=== PATIENT | female | born 1990 | race Caucasian/White ===

== ENCOUNTER → 2021-10-05 17:01 | Outpatient (CLI) | payer OTHER, SELFPAY ==
[2021-10-05 20:26] LABS: Urine N gonorrhoeae NOT DETECTED
[2021-10-05 20:32] LABS: Urine Chlamydia NOT DETECTED
== END ==
PROVIDERS: PCP Physician Assistant; Visit Provider Obstetrics & Gynecology
DX: Z34.81 Encounter for supervision of other normal pregnancy, first trimester (principal); Z3A.10 10 weeks gestation of pregnancy
CPT/HCPCS: 87491; 87591

== ENCOUNTER → 2021-10-05 17:42 | Outpatient (CLI) | payer OTHER, SELFPAY ==
[2021-10-05 18:04] LABS: Add Manual Diff / Slide Review NO; Basophils Absolute Auto 100 /uL (0-100); Basophils Percent Auto 0.6 % (0-2); Eosinophils Absolute Auto 100 /uL (0-450); Eosinophils Percent Auto 0.6 % (2-4); Hematocrit 39.6 % (36-46); Hemoglobin 13.9 g/dL (12.0-16.0); Lymphocytes Absolute Auto 1700 /uL (1100-4500); Lymphocytes Percent Auto 14.7 % (25-40); Mean Corpuscular HGB Conc 35.1 % (30-36); Mean Corpuscular Hemoglobin 29.3 PG (26-34); Mean Corpuscular Volume 83.6 fL (80-100); Monocytes Absolute Auto 500 /uL (0-900); Monocytes Percent Auto 4.4 % (3-14); Neutrophils Absolute Auto 9300 /uL (1500-7000); Neutrophils Percent Auto 79.7 % (50-75); Platelet Count 304 X10^3/uL (150-400); Red Blood Cell Count 4.73 X10^6/uL (4.0-5.2); Red Cell Distribution Width 12.5 % (11.6-14.8); White Blood Cell Count 11.7 X10^3/uL (4.5-11.0)
[2021-10-05 18:20] LABS: Alanine Aminotransferase 16 IU/L (<35); Aspartate Aminotransferase 22 IU/L (14-36); BUN Creatinine Ratio 20.4 (6-22); Blood Urea Nitrogen 11 mg/dL (7-17); Estimated Glomerular Filt Rate > 60 mL/min (>60); Uric Acid 3.3 mg/dL (2.5-6.2)
== END ==
PROVIDERS: PCP Physician Assistant; Referring Provider Obstetrics & Gynecology; Visit Provider Obstetrics & Gynecology
DX: Z34.81 Encounter for supervision of other normal pregnancy, first trimester (principal); Z36.0 Encounter for antenatal screening for chromosomal anomalies; Z3A.10 10 weeks gestation of pregnancy
CPT/HCPCS: 36415; 82565; 84450; 84460; 84520; 84550; 85025; 87491; 87591

== ENCOUNTER → 2021-11-17 17:32 | Outpatient (CLI) | payer OTHER, SELFPAY ==
[2021-11-17 18:23] LABS: Add Manual Diff / Slide Review NO; Basophils Absolute Auto 0 /uL (0-100); Basophils Percent Auto 0.3 % (0-2); Eosinophils Absolute Auto 100 /uL (0-450); Eosinophils Percent Auto 0.6 % (2-4); Hemoglobin 12.9 g/dL (12.0-16.0); Lymphocytes Absolute Auto 2100 /uL (1100-4500); Lymphocytes Percent Auto 17.4 % (25-40); Mean Corpuscular HGB Conc 35.9 % (30-36); Mean Corpuscular Hemoglobin 29.8 PG (26-34); Monocytes Absolute Auto 500 /uL (0-900); Monocytes Percent Auto 4.2 % (3-14); Neutrophils Absolute Auto 9200 /uL (1500-7000); Neutrophils Percent Auto 77.5 % (50-75); Platelet Count 316 X10^3/uL (150-400); Red Blood Cell Count 4.34 X10^6/uL (4.0-5.2); Red Cell Distribution Width 12.7 % (11.6-14.8); White Blood Cell Count 11.9 X10^3/uL (4.5-11.0)
[2021-11-17 18:23] LABS: Appearance Urine UA CLEAR; Bilirubin Urine UA NEGATIVE (NEGATIVE); Color Urine UA YELLOW; Glucose Urine UA NEGATIVE (Negative); Ketones Urine UA NEGATIVE (NEGATIVE); Leukocyte Esterase Urine UA 2+ (NEGATIVE); Nitrite Urine UA NEGATIVE (Negative); Occult Blood Urine UA TRACE-LYSED (Negative); Protein Urine UA TRACE (Negative); Specific Gravity Urine UA 1.025 (1.000-1.035); Urobilinogen Urine UA 0.2 E.U./dL (0.2)
[2021-11-17 18:30] LABS: RBC Urine None Seen (0-5/HPF); WBC Urine 10-30/HPF (0-5/HPF)
[2021-11-17 18:31] LABS: Bacteria Urine Many (>30); Culture Indicated Urine Specimen Cultured; Squamous Epithelial Cell Urine 5-10 /HPF (0-5/HPF)
[2021-11-19 08:13] LABS: RPR Screen Non Reactive (Non Reactive)
[2021-11-19 12:48] LABS: Varicella IgG Antibody 1737 index (Immune >165)
[2021-11-21 11:27] LABS: HIV 1 & 2 Ab/Ag 4th Gen Combo NEGATIVE (NEGATIVE); Hep C Virus Ab w/Reflex Quant NEGATIVE s/c (NEGATIVE); Hepatitis B Surface Antigen NEGATIVE s/c (NEGATIVE); Rubella Antibody IgG 26.3 IU/mL (>15)
[2021-11-21 21:48] LABS: AFP Value 48.8 ng/mL (.); Gest Age on Col Date 17.6 weeks (.); Insulin Dep Diabetes No (.); OSBR Risk 1IN 6499 (.); Results Report (.); Test Results *Screen Negative* (.)
== END ==
PROVIDERS: PCP Physician Assistant; Referring Provider Obstetrics & Gynecology; Visit Provider Obstetrics & Gynecology
DX: Z34.82 Encounter for supervision of other normal pregnancy, second trimester (principal); Z3A.16 16 weeks gestation of pregnancy
CPT/HCPCS: 36415; 80055; 81003; 81015; 82105; 86787; 86803; 86850; 86900; 86901; 87086; 87389

== ENCOUNTER → 2021-12-14 12:08 | Outpatient (CLI) | payer OTHER, SELFPAY ==
--- NOTE | 2021-12-14 12:09 | DI.US.S_ITS ---
PROCEDURE: US OB >= 14 WEEKS FETUS INDICATIONS: anatomy scan OUTSIDE/PRIOR DATING DATA: Last menstrual period (LMP): 07/17/2021 LMP-based estimated date of delivery (KENIA): 04/23/2022. First dating scan (date and location): 10/05/2021. Estimated date of delivery (KENIA) from first dating scan: 04/29/2022. The calculations are made using the ultrasound KENIA of 04/29/2022. TECHNIQUE: Real-time scanning was performed of the fetus, with image documentation and biometric measurements. COMPARISON: None. FINDINGS: General: A single living intrauterine gestation is present. Presentation: Vertex. Placenta: Placental position is posterior , without previa. Amniotic fluid index: 12.8 cm, normal range is 5-24 cm. Single deepest vertical pocket is 3.8 cm. heart rate: 149 beats per minute. Maternal cervical canal: 4.7 cm long. Normal lower limit is 2.5 cm. biometrics: Biparietal diameter: 21 weeks 2 days Head circumference: 20 weeks 6 days Abdominal circumference: 20 weeks Femur length: 20 weeks Clinically estimated gestational age: 21 weeks 3 days Composite gestational age from present scan: 20 weeks 4 days Estimated weight and percentile: 341 g; 5th percentile Anatomic survey: Neuro: Ventricles are non-dilated at less than 10 mm. Cisterna magna is normal at 3-11 mm. Cerebellum is normal in size and morphology. Nuchal skin fold: Normal at less than 6 mm between 14-21 weeks gestational age. Face: Nose and lips, facial profile are normal. Spine: No evidence for spina bifida. Heart: Suboptimally visualized. Diaphragm: Diaphragm is intact. Stomach: Left-sided stomach is present. Kidneys: No hydronephrosis. Normal is less than 5 mm in 2nd trimester, less than 7 mm in 3rd trimester. Cord: 3-vessel cord has orthotopic insertion. Bladder: Normal in size. Extremities: All 4 extremities identified. IMPRESSION: 1. Single living IUP redemonstrated and interval growth is less than expected with estimated weight at the 5th percentile. Follow-up recommended. 2. heart not well seen; otherwise normal anatomic survey. We strive to produce accurate, complete, and clear reports of imaging services. To assist us in improving patient care, this report was composed using standard report templates and voice recognition software. Therefore, it may contain abnormal punctuation, insertions and/or omissions. Occasional wrong-word or sound-alike substitutions may occur. Though we review the report and make efforts to correct it, we do recommend that the report be read carefully in proper context to recognize any text inaccuracies. Dictated by: Sha TEJEDA Interpreted: Corbin Cook MD on 12/14/2021 at 14:12 Transcribed by: SANDER on 12/14/2021 at 14:14 Approved by: Corbin Cook M.D. on 12/14/2021 at 17:50
== END ==
PROVIDERS: PCP Physician Assistant; Referring Provider Obstetrics & Gynecology; Visit Provider Obstetrics & Gynecology
DX: Z34.82 Encounter for supervision of other normal pregnancy, second trimester (principal); Z3A.20 20 weeks gestation of pregnancy
CPT/HCPCS: 76811

== ENCOUNTER → 2022-01-26 11:11 | Outpatient (CLI) | payer OTHER, SELFPAY ==
[2022-01-26 16:40] LABS: GTT (PREG) 1 Hour PP 50gm Dose 133 mg/dL (76-139)
== END ==
PROVIDERS: PCP Physician Assistant; Referring Provider Obstetrics & Gynecology; Visit Provider Obstetrics & Gynecology
DX: Z34.82 Encounter for supervision of other normal pregnancy, second trimester (principal); Z3A.26 26 weeks gestation of pregnancy
CPT/HCPCS: 36415; 82950; 85014; 85018

== ENCOUNTER 2022-02-27 07:55 | Outpatient (CLI) | payer OTHER, SELFPAY ==
[2022-02-27 08:41] LABS: Appearance Urine UA CLEAR; Bilirubin Urine UA NEGATIVE (NEGATIVE); Color Urine UA YELLOW; Glucose Urine UA NEGATIVE (Negative); Ketones Urine UA NEGATIVE (NEGATIVE); Leukocyte Esterase Urine UA 1+ (NEGATIVE); Nitrite Urine UA NEGATIVE (Negative); Occult Blood Urine UA 2+ (Negative); Protein Urine UA NEGATIVE (Negative); Specific Gravity Urine UA <=1.005 (1.000-1.035); Urobilinogen Urine UA 0.2 E.U./dL (0.2)
[2022-02-27 08:51] LABS: pH Urine UA 5.5 (4.5-8.0)
[2022-02-27 09:00] LABS: Bacteria Urine Few (2-10); Culture Indicated Urine Specimen Cultured; RBC Urine 0-1/HPF (0-5/HPF); Squamous Epithelial Cell Urine 0-1 /HPF (0-5/HPF); WBC Urine 0-1/HPF (0-5/HPF)
[2022-02-27] MEDS: NIFEdipine 10 MG CAPSULE PO ×4 (09:22→10:45)
== END 2022-02-27 11:25 | disposition home or self-care (01) ==
LOC: LABOR 08:09 → OB 03-01 17:06
PROVIDERS: Obstetrics & Gynecology; PCP Physician Assistant; Referring Provider Obstetrics & Gynecology; Visit Provider Obstetrics & Gynecology
DX: O60.03 Preterm labor without delivery, third trimester (principal); Z3A.30 30 weeks gestation of pregnancy
CPT/HCPCS: 59025; 59050; 81001; 87086; G0378; G0379

== ENCOUNTER 2022-04-06 07:06 | Observation (INO) | payer OTHER, SELFPAY ==
[2022-04-06] MEDS: TERBUTALINE 1 MG/ML VIAL 0.25 MG SUBCUT (07:30)
== END 2022-04-06 09:35 | disposition home or self-care (01) ==
PROVIDERS: Admitting Provider Obstetrics & Gynecology; PCP Physician Assistant; Referring Provider Obstetrics & Gynecology; Visit Provider Obstetrics & Gynecology
DX: O60.03 Preterm labor without delivery, third trimester (principal); Z3A.36 36 weeks gestation of pregnancy
CPT/HCPCS: 59025; 59050; G0378; G0379

== ENCOUNTER 2022-04-12 10:53 | Inpatient (IN) | payer OTHER, SELFPAY ==
--- NOTE | 2022-04-12 11:39 | P.HPOB_ITS ---
OB HPI Date/Time Date of admission: 04/12/22 Date Patient Seen: 04/12/22 Time Patient Seen: 11:39 History of Present Condition Chief complaint: Contractions, Breech presentation : 2 Para: 1 Estimated Date of Delivery: 05/03/22 Estimated Gestational Age (weeks): 37+0 Narrative: Josey De Leon is a 32 year old , KENIA 05/03/2022 who presents with regular uterine contractions today at 37+ 0 weeks gestational age. Patient had been noted to be breech and unsuccessful ECV was attempted 04/06/2022. Contractions began earlier today and have progressed to the point where they are every 2 minutes and of moderate intensity. External heart rate monitoring shows a reactive tracing with baseline heart rate of 150 beats per minute and deceleration down to 120 beats per minute was noted after cervical check but baseline heart rate is returned to pre deceleration levels. course is largely been uneventful with the appropriate milestones and normal 1/2 trimester ultrasounds. Patient is known to have either an arcuate or bicornuate uterus. Patient had a severe reaction to prior opioid administration and declines any opioid administration because of that event. Indications Operative indications ( section): malpresentation History of Present care: good care Dating criteria: LMP confirmed by 1st trimester US Ultrasounds: normal 1st trimester US and normal mid trimester US Obstetrical complications: none Medical complications: none Preadmission Labs Blood type: O (+) positive -: Antibody screen: negative, GBS status: unknown, HBsAG: negative, HIV: negative and RPR/VDLR: negative -: Chlamydia screen: not detected and Gonorrhea screen: not detected -: Rubella: immune and Varicella: immune HCT: 37.0 HCAB: negative PAP: Normal Quad screen: Normal 1 hr GTT: 133 Prior (ies) History: x 1 Evaluation Evaluation Baseline heart rate: 155 Variability: Moderate (11-25) monitor accelerations: Present Monitor Decelerations: Episodic (Isolated variables following SVE) Contraction Frequency (minutes): 3 Uterine Contraction Intensity: Moderate Category of Tracing: Reactive Status: Category l Dilation (cm): 0 Effacement (%): 50 Dilation: Closed Effacement: 40-50% station: -3 [facility] Medical History (Updated 03/25/22 @ 18:50 by Breanna Gonzalez MD) Bicornate uterus Chicken pox (~1992) Eczema (~2009) Encounter for supervision of other normal , first trimester Fibroids (~2019) High risk due to history of previous obstetrical problem Irregular menstrual cycle Migraines (~2009) PCOS (polycystic ovarian syndrome) (~2019) depression delivery UTI (urinary tract infection) Surgical History (Updated 10/07/21 @ 12:07 by Breanna Gonzalez MD) Anesthesia History of cholecystectomy (~2019) History of cholecystectomy [place] teeth removed Family History (Updated 09/30/21 @ 19:05 by Mary Kate Naik) Mother Breast cancer Grandmother Breast cancer Grandfather History of heart disease Family/Other Treacher Machuca syndrome Social History marital status: number of children: 1 household members: spouse and children lives independently: Yes housing: house pets and animals: Yes (dog) 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) occupational status: employed current occupational exposures/hazards: No special ervin needs: No travel history: over 6 months ago seatbelt use: always water heater temp set < 120 deg: Yes working smoke detector in home: Yes fire extinguisher in home: Yes carbon monox detector in home: Yes firearms in home: No do you feel safe at home: Yes Smoking Status: Never smoker second hand exposure: No alcohol intake: never substance use type: does not use during the past year weight has: remained stable well-balanced diet: daily or most days daily servings fruits/ve-4 caffeine: No (aware of 200 mg limit) Type(s) of exercise: walking frequency: 5-6 times per week Meds Home Medications and Allergies Home Medications Medication Instructions Recorded Confirmed Type metformin 1,000 mg tablet 1,000 mg PO DAILY 09/29/21 03/23/22 History prenat.vits,leann,ibq-crur-buhfe 1 tab PO DAILY 09/29/21 03/23/22 History aspirin 81 mg tablet 81 mg PO DAILY 04/12/22 04/12/22 History Allergies Allergy/AdvReac Type Severity Reaction Status Date / Time shellfish derived Allergy Intermediate Rash Verified 03/23/22 09:40 Opioids - Morphine Analogues AdvReac Intermediate Hypotension Verified 03/23/22 09:40 Review of Systems Review of Systems Narrative: Problem-specific ROS positives included in HPI OB Exam HENMT Head: normal to inspection, normocephalic and atraumatic Eyes General: appearance normal, both eyes and all related structures Resp Effort & Inspection: normal respiratory effort and able to speak in complete sentences Auscultation: clear to auscultation bilaterally Cardio Rate: regular rate Rhythm: regular rhythm Heart Sounds: S1 normal, S2 normal and no murmurs Extremities Lower extremity: Yes normal to inspection GI Inspection: normal to inspection Palpation: Yes soft and Yes no hepatosplenomegaly Uterus Location (Fundal Height): 35 Presentation: ana maría breech Estimated Weight (lbs): 7 Objective Labs Result Diagrams: 04/12/22 11:50 Assessment and Plan Assessment and Plan Assessment and Plan narrative: ASSESSMENT 1. Intrauterine , 37+ 0 weeks gestational age, [place], prodromal labor 2. Breech presentation 3. Arcuate/bicornuate uterus 4. Opioid hypersensitivity PLAN 1. Admit delivery by section 2. Admission orders
[2022-04-12 11:43] VITALS: BP 130/85
--- NOTE | 2022-04-12 11:48 | PM.PREOP ---
Pre-operative Note COVID-19 COVID-19 status: Negative Result date/Date tested (Pos, Neg/Pending): 04/12/22 Criteria for continued procedure: Non-surgical alternatives not available or appropriate per current SOC Interval Note History & Physical reviewed/Exam performed by Physician: Yes Changes to H&P: No
[2022-04-12] MEDS: LACTATED RINGERS 1,000 ML 100 ML IV ×2 (11:51→13:25)
--- NOTE | 2022-04-12 11:57 | SUR.OPER ---
Supine on Padded OR bed, head on pillow, safety belt at thigh, arms secured on padded arm boards at <90 degrees abduction. Bump under right buttock. Legs uncrossed with pillow under knees, gel pad to heels, tape over blanket to lower legs.
[2022-04-12 12:01] LABS: COVID19 -Nasal RAPID Negative (Negative)
[2022-04-12] MEDS: CITRIC ACID/SODIUM CITRATE 15 ML SOLUTION 30 ML PO (12:10)
[2022-04-12 12:17] VITALS: BP 130/85
[2022-04-12 12:26] LABS: Add Manual Diff / Slide Review NO; Basophils Absolute Auto 0 /uL (0-100); Basophils Percent Auto 0.2 % (0-2); Eosinophils Absolute Auto 100 /uL (0-450); Eosinophils Percent Auto 0.5 % (2-4); Hematocrit 36.8 % (36-46); Hemoglobin 12.5 g/dL (12.0-16.0); Lymphocytes Absolute Auto 1700 /uL (1100-4500); Lymphocytes Percent Auto 13.2 % (25-40); Mean Corpuscular Hemoglobin 29.4 PG (26-34); Mean Corpuscular Volume 86.3 fL (80-100); Monocytes Absolute Auto 500 /uL (0-900); Monocytes Percent Auto 3.8 % (3-14); Neutrophils Absolute Auto 10500 /uL (1500-7000); Neutrophils Percent Auto 82.3 % (50-75); Platelet Count 294 X10^3/uL (150-400); Red Blood Cell Count 4.26 X10^6/uL (4.0-5.2); Red Cell Distribution Width 12.6 % (11.6-14.8); White Blood Cell Count 12.8 X10^3/uL (4.5-11.0)
[2022-04-12] MEDS: CEFAZOLIN 2 GM/100 ML PREMIX 100 ML IV (12:39)
[2022-04-12] MEDS: ACETAMINOPHEN IV 1,000 MG/100 ML VIAL 400 MG IV (12:52)
--- NOTE | 2022-04-12 12:59 | SUR.OPER ---
VIABLE MALE INFANT DELIVERED AT 1255. CORD BLOOD AND PLACENTA TO OB WITH RN.
[2022-04-12 13:54] VITALS: BP 129/81; PULSE 102; RESP 15; TEMP 36.1; O2SAT 100
[2022-04-12 13:57] VITALS: BP 136/74; PULSE 91; RESP 22; O2SAT 100
--- NOTE | 2022-04-12 13:59 | PM.OBCS.1 ---
Operative Date/Time/Diagnoses Date of procedure: 04/12/22 Time of procedure: 12:30 Pre-op diagnosis: Intrauterine gestation, rolon, 37+0 weeks EGA, labor Double footling breech Post-op diagnosis: same Procedure & Clinicians Procedure: Primary section, low transverse cervical Same procedure as scheduled: Yes Indications: Josey De Leon is a 32 year old , KENIA 05/03/2022 who presents with regular uterine contractions today at 37+ 0 weeks gestational age.? Patient had been noted to be breech and unsuccessful ECV was attempted 04/06/2022.? Contractions began earlier today and have progressed to the point where they are every 2 minutes and of moderate intensity.? External heart rate monitoring shows a reactive tracing with baseline heart rate of 150 beats per minute and deceleration down to 120 beats per minute was noted after cervical check but baseline heart rate is returned to pre deceleration levels.? After discussion of management alternatives, risks, benefits, and potential complications, the decision has been made to proceed with primary section for delivery of this double footling breech infant Surgeon: Grayson Reynoso Clothes Ironer: Emmy Gibson Reason for Clothes Ironer: Clothes Ironer required for the safe, effective, and timely completion of this surgery. Anesthesia Type: Spinal Operative Notes Findings: Viable male infant BW 2280 gms, Apgars 8/9, delivered from the double footling breech presentation. Normal gravid anatomy. Closure Type: primary Specimen(s): cord blood Intraoperative meds administered: Acetaminophen, Ketorolac and Pitocin Applied: Catheter Estimated Blood Loss (mL): 600 Blood products transfused: none Procedure in detail: With her informed written consent, the patient was taken to the operating room and placed in the supine position for a primary section procedure, for the indication above. The abdomen was prepped and draped in the usual manner for section and a pre-surgical timeout was taken per [facility] OR protocol. Once effective anesthesia was confirmed, a 15 cm transverse Pfannenstiel incision was made in the skin and taken down through the subcutaneous tissues to the deep fascia. The deep fascia was incised transversely, the rectus abdominal eyes bluntly and sharply, and the peritoneal cavity entered without difficulty. The lower uterine segment was visualized and the position/presentation palpated. A transverse incision at or above the vesicouterine reflection was made with Metzenbaum scissors and transverse hysterotomy performed near the midline. Amniotomy revealed clear fluid. The incision was extended bilaterally with digital traction and the infant was delivered without difficulty from the double footling breech presentation. The was not vigorous at the time of delivery and therefore cord clamping was not delayed and a segment of cord was obtained for cord blood gases. CAN x 2 noted and reduced following delivery of the . The placenta was delivered intact using gentle cord traction and fundal massage.The uterine cavity was then cleared of any clot/debris first with a sloppy wet lap tape followed by a dry lap tape. Ring forceps were then applied to the angles and the midline of the incised DAVEY. A primary closure of the uterus was then accomplished with #1 CCGS in a running interlocking stitch followed by a 2nd layer of #1 CCGS in a running interlocking imbricating stitch. One additional [id number] suture was required to achieve complete hemostasis. Once pelvic hemostasis was assured, the bladder flap and anterior peritoneum were closed with a running 2-0 Vicryl suture and the fascia closed with #1 Vicryl in a running stitch initiated at both angles and tying separately near the midline. The subcutaneous tissues were reapproximated with 2-0 plain catgut suture using inverted interrupted stitches. The skin edges were then brought together with 4-0 Monocryl in a subcuticular closure and the incision was reinforced with 1 Steri-Strips. An appropriate compression dressing was applied and the patient transferred to PACU for recovery and subsequent transfer to the Center for recuperation. Complications: none Baby 1: Gender: Male Presentation: breech Placental Delivery Description: Spontaneous and Expressed Cord Vessel Description: 3 Vessels and Nuchal Cord (x 2) score (1 min): 8 score (5 min): 9 weight: 5 lb 0.425 oz Post-operative Condition: stable Disposition: PACU Aftercare: routine postop
[2022-04-12 14:02] VITALS: BP 134/77; PULSE 102; RESP 24; O2SAT 100
[2022-04-12 14:08] VITALS: BP 128/74; PULSE 98; RESP 18; O2SAT 100
[2022-04-12] MEDS: OXYTOCIN PREMIX 30 UNIT/500 ML PLAST..BAG 200 UNIT IV (15:10)
[2022-04-12] MEDS: KETOROLAC 30 MG/ML VIAL IV (19:22)
[2022-04-12] MEDS: ACETAMINOPHEN 325 MG TABLET 650 MG PO (19:23)
[2022-04-12] MEDS: DOCUSATE 100 MG CAPSULE 200 MG PO (21:31)
[2022-04-13] MEDS: KETOROLAC 30 MG/ML VIAL IV ×2 (01:38→07:44)
[2022-04-13] MEDS: ACETAMINOPHEN 325 MG TABLET 650 MG PO ×3 (01:39→12:49)
[2022-04-13 05:57] LABS: Add Manual Diff / Slide Review NO; Basophils Absolute Auto 0 /uL (0-100); Basophils Percent Auto 0.3 % (0-2); Eosinophils Absolute Auto 0 /uL (0-450); Eosinophils Percent Auto 0.3 % (2-4); Hematocrit 29.3 % (36-46); Hemoglobin 10.2 g/dL (12.0-16.0); Lymphocytes Absolute Auto 1700 /uL (1100-4500); Lymphocytes Percent Auto 12.5 % (25-40); Mean Corpuscular HGB Conc 34.8 % (30-36); Mean Corpuscular Hemoglobin 29.8 PG (26-34); Mean Corpuscular Volume 85.4 fL (80-100); Monocytes Absolute Auto 600 /uL (0-900); Monocytes Percent Auto 4.6 % (3-14); Neutrophils Absolute Auto 10800 /uL (1500-7000); Neutrophils Percent Auto 82.3 % (50-75); Platelet Count 239 X10^3/uL (150-400); Red Blood Cell Count 3.43 X10^6/uL (4.0-5.2); Red Cell Distribution Width 12.6 % (11.6-14.8); White Blood Cell Count 13.2 X10^3/uL (4.5-11.0)
--- NOTE | 2022-04-13 07:29 | PM.OBPN.1 ---
Subjective - OB Subjective Patient comments: no complaints, pain well controlled and incisional pain baby status: other (Likely transfer due to BS regulation issues) [place] feeding status: pumping and storing Date Patient Seen: 04/13/22 Time Patient Seen: 07:30 Interval history: POD#1: Doing well with minimal lochia. + flatus. Tolerating PO well and ambulating to BR w/ mahan out. Exam Vital Signs (past 8 hours): Oxygen Delivery Method Room Air Const General: cooperative and comfortable Nutritional Appearance: average body habitus Orientation: alert and oriented x3 HENMT Head: normal to inspection, atraumatic and abrasion Ears: hearing grossly normal bilaterally Face and sinus: face symmetric Eyes General: appearance normal, both eyes and all related structures Conjunctivae: conjunctivae normal Sclera: sclerae normal EOM: EOM intact bilaterally Neck Neck: normal visual inspection Resp Effort & Inspection: normal respiratory effort and able to speak in complete sentences Auscultation: clear to auscultation bilaterally Cardio Rate: regular rate Rhythm: regular rhythm Heart Sounds: S1 normal, S2 normal and no murmurs GI Inspection: normal to inspection and incision (Surgical dressing clean and dry) Palpation: soft, no hepatosplenomegaly and tender (Mild, diffuse postsurgical tenderness) External Female Exam: other (No significant bleeding noted) Extrem General: no calf tenderness Psych Appearance: grossly normal Mental Status: mental status grossly normal Speech and Movement: speech and movement normal Mood: congruent mood Affect: normal affect Attitude: cooperative Thought Process: normal Thought Content: normal Judgment: judgment good Objective Labs Result Diagrams: 04/13/22 05:44 Labs: Laboratory Results - last 24 hr 04/12/22 04/12/22 04/12/22 11:30 11:50 11:50 WBC 12.8 H RBC 4.26 Hgb 12.5 Hct 36.8 MCV 86.3 MCH 29.4 MCHC 34.0 RDW 12.6 Plt Count 294 Neut % (Auto) 82.3 H Lymph % (Auto) 13.2 L [place] % (Auto) 3.8 Eos % (Auto) 0.5 L Baso % (Auto) 0.2 Neut # (Auto) 48436 H Lymph # (Auto) 1700 [place] # (Auto) 500 Eos # (Auto) 100 Baso # (Auto) 0 SARS-CoV-2 (PCR) Negative Blood Type O Positive Antibody Screen Negative 04/13/22 05:44 WBC 13.2 H RBC 3.43 L Hgb 10.2 L Hct 29.3 L MCV 85.4 MCH 29.8 MCHC 34.8 RDW 12.6 Plt Count 239 Neut % (Auto) 82.3 H Lymph % (Auto) 12.5 L [place] % (Auto) 4.6 Eos % (Auto) 0.3 L Baso % (Auto) 0.3 Neut # (Auto) 33121 H Lymph # (Auto) 1700 [place] # (Auto) 600 Eos # (Auto) 0 Baso # (Auto) 0 SARS-CoV-2 (PCR) Blood Type Antibody Screen Assessment & Plan Plan day: 1 plan OB: routine postop care Comments: Likely D/C later this AM due to pending transfer of her infant due to BS issues. Time Spent With Patient Time: Total time spent is greater than 50% in coordination of care (as documented) at patient's floor/unit and/or counseling patient: Time with patient: 15-24 minutes
[2022-04-13] MEDS: IRON SUCROSE 200 MG in SODIUM CHLORIDE 0.9% 100 ML 220 MG IV (07:51)
--- NOTE | 2022-04-13 09:45 | PM.OBDS.1 ---
Discharge Providers Provider Date of admission: 04/12/22 10:53 Discharge Date: 04/13/22 Primary care physician: Tone Alba PA-C Consults: 04/12/22 15:22 Consult to Slasher Tender Helper Routine Comment: Discharge provider: Grayson Reynoso MD Summary Hospital Course Date Patient Seen: 04/13/22 Time Patient Seen: 09:45 Diagnoses: Intrauterine gestation, rolon, breech presentation in labor, delivered by primary section Hospital Course: Josey presented on the morning of 04/12/2022 with painful regular uterine contractions after a failed attempt of external cephalic version last week. After counseling regarding all options, decision was made proceed to primary section which was performed on the morning of 04/12/2022. Details of the procedure well summarized on the dictated operative note of that date. Following delivery the patient done extremely well with prompt return of bowel and bladder function, she is ambulating independently, tolerating regular diet, and her pain is well controlled with oral pain medications. Unfortunately her infant is having difficulties with blood sugar regulation and is scheduled be transferred to [facility] for continued inpatient care in their [facility] and therefore patient requests early discharge. She will be discharged at this time in an afebrile normotensive condition to home after counseling regarding precautionary symptoms, limitations activity, medications, and plans for follow-up. Medications at discharge will include ibuprofen 600 mg p.o. q.6 hours as needed pain and Colace 200 mg p.o. b.i.d. as needed constipation. Follow-up will be with Dr. Kesha Mei one week for an incision check. Peripartum Data Infant Delivery Method: Section Laceration Description: None Episiotomy description: None complications: none 1: Gender: Male Disposition of : other (Transfer to [facility] for [facility] care) Discharge Diagnosis (1) delivery indicated due to breech presentation: Status: Acute Status at Discharge Cognitive/behavioral status at discharge: oriented Functional status at discharge: independent ambulation Overall status at discharge: patient is progressing back to baseline Time Spent with Patient Time attestation: Total time spent providing and/or coordinating discharge services: Time spent: Less than 30 minutes Objective Labs Result Diagrams: 04/13/22 05:44 Labs: Laboratory Results - last 24 hr 04/12/22 04/12/22 04/12/22 11:30 11:50 11:50 WBC 12.8 H RBC 4.26 Hgb 12.5 Hct 36.8 MCV 86.3 MCH 29.4 MCHC 34.0 RDW 12.6 Plt Count 294 Neut % (Auto) 82.3 H Lymph % (Auto) 13.2 L [place] % (Auto) 3.8 Eos % (Auto) 0.5 L Baso % (Auto) 0.2 Neut # (Auto) 70055 H Lymph # (Auto) 1700 [place] # (Auto) 500 Eos # (Auto) 100 Baso # (Auto) 0 SARS-CoV-2 (PCR) Negative Blood Type O Positive Antibody Screen Negative 04/13/22 05:44 WBC 13.2 H RBC 3.43 L Hgb 10.2 L Hct 29.3 L MCV 85.4 MCH 29.8 MCHC 34.8 RDW 12.6 Plt Count 239 Neut % (Auto) 82.3 H Lymph % (Auto) 12.5 L [place] % (Auto) 4.6 Eos % (Auto) 0.3 L Baso % (Auto) 0.3 Neut # (Auto) 31319 H Lymph # (Auto) 1700 [place] # (Auto) 600 Eos # (Auto) 0 Baso # (Auto) 0 SARS-CoV-2 (PCR) Blood Type Antibody Screen Exam Vital Signs (past 8 hours): Oxygen Delivery Method Room Air Const General: cooperative and comfortable Nutritional Appearance: average body habitus Orientation: alert and oriented x3 HENMT Head: normal to inspection, atraumatic and abrasion Ears: hearing grossly normal bilaterally Face and sinus: face symmetric Eyes General: appearance normal, both eyes and all related structures Conjunctivae: conjunctivae normal Sclera: sclerae normal EOM: EOM intact bilaterally Neck Neck: normal visual inspection Resp Effort & Inspection: normal respiratory effort and able to speak in complete sentences Auscultation: clear to auscultation bilaterally Cardio Rate: regular rate Rhythm: regular rhythm Heart Sounds: S1 normal, S2 normal and no murmurs GI Inspection: normal to inspection and incision (Compression dressing removed; AquaCel dressing applied) Palpation: soft, no hepatosplenomegaly, mass (Firm, mildly tender fundus, U-5) and tender (Mild, diffuse postsurgical tenderness) External Female Exam: other (No significant bleeding noted) Extrem General: no calf tenderness Psych Appearance: grossly normal Mental Status: mental status grossly normal Speech and Movement: speech and movement normal Mood: congruent mood Affect: normal affect Attitude: cooperative Thought Process: normal Thought Content: normal Judgment: judgment good Discharge Plan Discharge Plan Patient Disposition: Home Provider Discharge Comment: Please review the written instructions when you received when you were discharged from the hospital. Discharge orders & Medications Prescriptions: New docusate sodium 100 mg Capsule 200 mg PO 1-2XD PRN (Reason: Constipation) Qty: 60 0RF ibuprofen 600 mg Tablet 600 mg PO Q6H PRN (Reason: Fever/Mild Pain (1-3)) Qty: 60 0RF Continued ibuprofen 600 mg tablet 600 mg PO Q6H PRN (Reason: fever or pain) Qty: 60 2RF prenat.vits,leann,[id number]-[id number] Tablet 1 tab PO DAILY Discontinued metformin 1,000 mg tablet 1,000 mg PO DAILY Adult Aspirin 81 mg Tablet 81 mg PO DAILY Follow up/Referrals: Tone Alba PA-C [Primary Care Provider] - Grayson Reynoso MD [Physician] - (Please follow up with Dr. Reynoso on April 20 at 2:45 with a 2:30 check in, for dressing removal. If you have any questions/concerns or need to reschedule please call .) Discharge Health Status Multidrug resistant organism: No MDRO Diet/Activity/Treatments Diet: Diet as Tolerated Activity: As tolerated Other treatments: [id number] Tylenol may be used for additional pain relief Skin/Wound/Dressing Care Report to your healthcare provider any signs of infection, such as:: chills, fever, increased pain, unusual drainage and unusual redness Dressing: Dressing will be removed at your one-week postop visit Visit Report/Discharge Packet Instructions: DI for , DI for and Nipple Soreness Stand Alone Forms: Discharge: Care Discharge Data Primary Care Provider: Tone Alba
== END 2022-04-13 12:55 | disposition home or self-care (01) | DRG 787 ==
PROVIDERS: Obstetrics & Gynecology; Admitting Provider Obstetrics & Gynecology; PCP Physician Assistant; Referring Provider Obstetrics & Gynecology; Visit Provider Obstetrics & Gynecology
PROC: 10D00Z1 Extraction of Products of Conception, Low, Open Approach (ICD-10-PCS; CPT 59514; principal; 2022-04-12 11:45)
DX: O32.8XX0 Maternal care for other malpresentation of fetus, not applicable or unspecified (principal); D62 Acute posthemorrhagic anemia; O99.02 Anemia complicating childbirth; Z3A.37 37 weeks gestation of pregnancy; Z37.0 Single live birth; O76 Abnormality in fetal heart rate and rhythm complicating labor and delivery; O34.03 Maternal care for unspecified congenital malformation of uterus, third trimester; Q51.3 Bicornate uterus; Z20.822 Contact with and (suspected) exposure to COVID-19
CPT/HCPCS: 36415; 59050; 59510; 59514; 76815; 85025; 86850; 86900; 86901; 87635; C9803; G0379; J0131; J0690; J1756; J1885; J2274; J2405; J2590; J2704; J2765